=== PATIENT | female | born 1975 | race Caucasian/White ===

== ENCOUNTER 2020-06-16 05:58 | Day surgery (SDC) | payer OTHER ==
[2020-06-16] VITALS (12 sets, daily range): BP systolic 121–149; BP diastolic 73–98
[~2020-06-16] VITALS: Ht 154.9 cm; Wt 58.0 kg
[~2020-06-16 05:58] MED LIST: HYDR-3583 PO; MULT-608 PO; OMEP20TA2 PO; OXYC-12 PO; PRM25T PO; TRAM50TA2 PO
[2020-06-16 07:11] LABS: BASOPHILS # (AUTO) 0.1 10^3/uL (0.0-0.1); BASOPHILS % (AUTO) 0 % (0-10); CHLORIDE 106 MMOL/L (98-107); EOSINOPHILS # (AUTO) 0.1 10^3/uL (0.0-0.3); EOSINOPHILS % (AUTO) 0 % (0-10); HEMATOCRIT 38 % (35-52); HEMOGLOBIN 12.1 g/dL (11.5-16.0); LYMPHOCYTES # (AUTO) 1.7 10^3/uL (1.0-4.0); LYMPHOCYTES % (AUTO) 12 % (12-44); MEAN CORPUSCULAR HEMOGLOBIN 26 pg (25-34); MEAN CORPUSCULAR HGB CONC 32 g/dL (32-36); MEAN CORPUSCULAR VOLUME 83 fL (80-99); MEAN PLATELET VOLUME 9.9 fL (9.0-12.2); MONOCYTES % (AUTO) 6 % (0-12); NEUTROPHILS # (AUTO) 12.2 10^3/uL (1.8-7.8); NEUTROPHILS % (AUTO) 81 % (42-75); PLATELET COUNT 331 10^3/uL (130-400); POTASSIUM 3.8 MMOL/L (3.6-5.0); SODIUM 139 MMOL/L (135-145); WHITE BLOOD COUNT 15.1 10^3/uL (4.3-11.0)
[2020-06-16 07:13] LABS: CALCIUM 8.7 MG/DL (8.5-10.1); GLUCOSE 98 MG/DL (70-105)
[2020-06-16 07:15] LABS: CARBON DIOXIDE 24 MMOL/L (21-32)
[2020-06-16] MEDS ORDERED: fentaNYL INJECTION 100 MCG/2 ML AMP IVP ONE ×3 (07:15→11:30)
[2020-06-16] MEDS ORDERED: ONDANSETRON 4 MG/2 ML (SDV) Z0FRAN IVP ONE ×2 (07:15→10:15)
[2020-06-16] MEDS ORDERED: NS IV 1000 ML 1,000 ML IV SCH (07:15)
[2020-06-16 07:17] LABS: CREATININE SERUM 0.83 MG/DL (0.60-1.30); GFR ESTIMATED > 60
[2020-06-16 07:18] LABS: BUN/CREATININE RATIO 14
--- NOTE | 2020-06-16 07:18 | ED Abdominal Pain ---
General Stated Complaint: RT SIDE & LOW BACK & ABD PAIN Source of Information: Patient Exam Limitations: No Limitations History of Present Illness Date Seen by Provider: Jun 16, 2020 Time Seen by Provider: 07:05 Initial Comments Carla is a 45-year-old female who presents to the emergency department today with a chief complaint of abdominal pain. Patient states that she started having mid abdominal pain yesterday while she was at work, she states the pain has slowly migrated into her right lower quadrant. Patient states the pain radiates into her back and up into her right shoulder. Patient states she has never had pain like this before. She has had a previous cholecystectomy. Patient states that she has been nauseated and has had decreased appetite. No fevers are reported. Patient denies any diarrhea. Patient states everything makes her pain worse. She states when she brings her knees to her chest she feels a little bit better. Patient has not taken anything for the pain. She denies any dysuria, urgency or frequency. No abnormal vaginal discharge. Patient's last menstrual cycle was about 2 weeks ago. She states it was longer than normal and she spotted for many days after her period ended. All other review of systems reviewed and negative except as stated above. Timing/Duration: 12-24 Hours Severity/Quality: Moderate, Aching, Sharp, Stabbing Location: RLQ Radiation: Back, Scapula Activities at Onset: Other (Patient was at work at the onset of symptoms) Modifying Factors: Improves With Lying down, Improves With Resting Associated Symptoms: Nausea/Vomiting Allergies and Home Medications Allergies Coded Allergies: No Known Drug Allergies (Verified , 06/16/20) Home Medications Hydrocodone Bit/Acetaminophen 1 Tab Tab, 1-2 EA PO Q4HR PRN, (Reported) Multivitamins 1 Tab Tablet, 1 TAB PO DAILY, (Reported) Omeprazole 20 Mg Tablet.dr, 20 MG PO DAILY PRN, (Reported) Patient Home Medication List Home Medication List Reviewed: Yes Review of Systems Review of Systems Constitutional: see HPI EENTM: No Symptoms Reported Respiratory: No Symptoms Reported Cardiovascular: No Symptoms Reported Gastrointestinal: Abdomen Distended, Abdominal Pain, Nausea, Poor Appetite Genitourinary: No Symptoms Reported Musculoskeletal: no symptoms reported Skin: no symptoms reported All Other Systems Reviewed Negative Unless Noted: Yes Past Qzignjb-Iupami-Coepmd Hx Past Medical History Reproductive Disorders: No Physical Exam Vital Signs Vital Signs - First Documented 06/16/20 06:24 Temp 36.9 Pulse 107 Resp 18 B/P (MAP) 151/106 (121) Pulse Ox 99 Capillary Refill : Height/Weight/BMI Height: '" Weight: lbs. oz. kg; BMI Method:Stated General Appearance: WD/WN, mild distress HEENT: PERRL/EOMI Respiratory: lungs clear, normal breath sounds, no respiratory distress, no accessory muscle use Cardiovascular: regular rate, rhythm, no murmur Gastrointestinal: soft, abnormal bowel sounds (Hypoactive bowel sounds), guarding, tenderness (Right lower quadrant) Extremities: non-tender, normal inspection, no pedal edema Neurologic/Psychiatric: alert, normal mood/affect, oriented x 3 Skin: normal color, warm/dry Progress/Results/Core Measures Results/Orders Lab Results Laboratory Tests Test 06/16/20 06:27 06/16/20 06:36 Range/Units Urine Color YELLOW Urine Clarity CLEAR Urine pH 5.5 5-9 Urine Specific [place] 1.025 H 1.016-1.022 Urine Protein NEGATIVE NEGATIVE Urine Glucose (UA) NEGATIVE NEGATIVE Urine Ketones NEGATIVE NEGATIVE Urine Nitrite NEGATIVE NEGATIVE Urine Bilirubin NEGATIVE NEGATIVE Urine Urobilinogen 0.2 < = 1.0 MG/DL Urine Leukocyte Esterase NEGATIVE NEGATIVE Urine RBC (Auto) 1+ H NEGATIVE Urine RBC 2-5 H /HPF Urine WBC NONE /HPF Urine Squamous Epithelial Cells 10-25 H /HPF Urine Crystals NONE /LPF Urine Bacteria FEW H /HPF Urine Casts NONE /LPF Urine Mucus NEGATIVE /LPF Urine Culture Indicated NO Urine Test NEGATIVE NEGATIVE White Blood Count 15.1 H 4.3-11.0 10^3/uL Red Blood Count 4.61 3.80-5.11 10^6/uL Hemoglobin 12.1 11.5-16.0 g/dL Hematocrit 38 35-52 % Mean Corpuscular Volume 83 80-99 fL Mean Corpuscular Hemoglobin 26 25-34 pg Mean Corpuscular Hemoglobin Concent 32 32-36 g/dL Red Cell Distribution Width 14.3 10.0-14.5 % Platelet Count 331 130-400 10^3/uL Mean Platelet Volume 9.9 9.0-12.2 fL Immature Granulocyte % (Auto) 0 % Neutrophils (%) (Auto) 81 H 42-75 % Lymphocytes (%) (Auto) 12 12-44 % Monocytes (%) (Auto) 6 0-12 % Eosinophils (%) (Auto) 0 0-10 % Basophils (%) (Auto) 0 0-10 % Neutrophils # (Auto) 12.2 H 1.8-7.8 10^3/uL Lymphocytes # (Auto) 1.7 1.0-4.0 10^3/uL Monocytes # (Auto) 1.0 0.0-1.0 10^3/uL Eosinophils # (Auto) 0.1 0.0-0.3 10^3/uL Basophils # (Auto) 0.1 0.0-0.1 10^3/uL Immature Granulocyte # (Auto) 0.1 0.0-0.1 10^3/uL Neutrophils % (Manual) 82 % Lymphocytes % (Manual) 11 % Monocytes % (Manual) 6 % Eosinophils % (Manual) 1 % Band Neutrophils % Blood Morphology Comment NORMAL Sodium Level 139 135-145 MMOL/L Potassium Level 3.8 3.6-5.0 MMOL/L Chloride Level 106 98-107 MMOL/L Carbon Dioxide Level 24 21-32 MMOL/L Anion Gap 9 5-14 MMOL/L Blood Urea Nitrogen 12 7-18 MG/DL Creatinine 0.83 0.60-1.30 MG/DL Estimat Glomerular Filtration Rate > 60 BUN/Creatinine Ratio 14 Glucose Level 98 70-105 MG/DL Calcium Level 8.7 8.5-10.1 MG/DL My Orders Orders - DEVON FORMAN MD Ed Iv/Invasive Line Start (06/16/20 07:03) Cbc With Automated Diff (06/16/20 07:03) Basic Metabolic Panel (06/16/20 07:03) Ua Culture If Indicated (06/16/20 07:03) Hcg,Qualitative Urine (06/16/20 07:03) Ct Abdomen/Pelvis W (06/16/20 07:03) Ns Iv 1000 Ml (Sodium Chloride 0.9%) (06/16/20 07:15) Fentanyl Injection (Sublimaze Injection (06/16/20 07:15) Ondansetron Injection (Zofran Injectio (06/16/20 07:15) Manual Differential (06/16/20 06:36) Fentanyl Injection (Sublimaze Injection (06/16/20 08:15) Ciprofloxacin Iv 400mg/200ml (Cipro Iv S (06/16/20 09:15) Metronidazole 500mg/100ml Ivpb (Flagyl 5 (06/16/20 09:15) Medications Given in ED Current Medications Medications Dose Ordered Sig/Suhail Route Start Time Stop Time Status Last Admin Dose Admin Fentanyl Citrate 25 mcg ONCE ONCE IVP 06/16/20 07:15 06/16/20 07:16 DC 06/16/20 07:15 25 MCG Fentanyl Citrate 50 mcg ONCE ONCE IVP 06/16/20 08:15 06/16/20 08:16 DC 06/16/20 08:23 50 MCG Iohexol 100 ml ONCE ONCE IV 06/16/20 07:30 06/16/20 07:31 DC 06/16/20 07:42 72 ML Ondansetron HCl 4 mg ONCE ONCE IVP 06/16/20 07:15 06/16/20 07:16 DC 06/16/20 07:15 4 MG Sodium Chloride 100 ml ONCE ONCE IV 06/16/20 07:30 06/16/20 07:31 DC 06/16/20 07:42 80 ML Vital Signs/I&O 06/16/20 06:24 Temp 36.9 Pulse 107 Resp 18 B/P (MAP) 151/106 (121) Pulse Ox 99 Progress Progress Note : Time: 09:05 Progress Note Discussed with Dr. Rivas on-call for general surgery. We will send her over to same-day surge for appendectomy secondary to acute appendicitis on CT. Patient had 2 sips of coffee this morning around 4 AM with a little bit of creamer in it. Patient is otherwise n.p.o. Dr. Rivas would like her to have some Cipro and Flagyl prior to surgery. We will get that accomplished before sending her over. Patient states her pain is well controlled at this time. Diagnostic Imaging Diagonstic Imaging: CT Plain Films/CT/US/NM/MRI: abdomen Comments [facility]. [place], [place] NAME: CARLA ANGUIANO [facility] REC#: [id number] PT STATUS: REG ER : 1975 PHYSICIAN: DEVON FORMAN MD ADMIT DATE: 06/16/20/ER Draft Date of Exam:06/16/20 CT ABDOMEN/PELVIS W PROCEDURE: CT abdomen and pelvis with contrast. TECHNIQUE: Multiple contiguous axial images were obtained through the abdomen and pelvis after administration of intravenous contrast. Auto Exposure Controls were utilized during the CT exam to meet ALARA standards for radiation dose reduction. All CT scans use one or more of the following dose optimizing techniques: automated exposure control, MA and/or KvP adjustment based on patient size and exam type or iterative reconstruction. INDICATION: Right lower quadrant pain. Comparison is made with prior CT from 07/02/2010. The lung bases are clear. No discrete liver mass is detected. Gallbladder is surgically absent. No biliary ductal dilatation is seen. Pancreas and spleen are unremarkable. No adrenal mass is detected. Kidneys are unremarkable. Aorta is non-aneurysmal. The appendix is identified in the right lower quadrant. The appendix is dilated and fluid-filled with wall thickening. There is periappendiceal inflammation. Features are consistent with acute appendicitis. No definite abscess formation is seen. There is moderate stool throughout the ascending and transverse colon as well as the descending colon consistent with constipation. No definite bowel obstruction is seen although there are some mildly dilated and fluid filled small bowel loops in the left abdomen. There is no free air. Uterus and bladder are unremarkable. The bony structures are nonacute. IMPRESSION: Findings consistent with acute appendicitis. No abscess formation or bowel obstruction is identified. Dictated on workstation # [id number] Dict: 06/16/2008 Trans: 06/16/20 0815 [facility] [id number] Interpreted by: LARISA CALIXTO MD Electronically signed by: Departure Communication (Admissions) Time/Spoke to Admitting Phy: 09:[address] Rivas - Same Day Surg; cipro and flagyl to be given Impression Primary Impression: Abdominal pain Qualified Codes: R10.31 - Right lower quadrant pain Additional Impression: Acute appendicitis Qualified Codes: K35.30 - Acute appendicitis with localized peritonitis, without perforation or gangrene Disposition: ADMITTED INPATIENT Condition: Stable Admissions Decision to Admit Reason: Admit from ER (General) Decision to Admit/Date: Jun 16, 2020 Time/Decision to Admit Time: 09:08 Departure-Patient Inst. Referrals: OSCAR STANTON DO (PCP/Family) Primary Care Physician DEVON FORMAN MD Jun 16, 2020 07:18
[2020-06-16 07:24] LABS: BILIRUBIN,URINE NEGATIVE (NEGATIVE); CLARITY,URINE CLEAR; COLOR,URINE YELLOW; GLUCOSE, URINE (UA) NEGATIVE (NEGATIVE); KETONES,URINE NEGATIVE (NEGATIVE); LEUKOCYTE ESTERASE ,URINE NEGATIVE (NEGATIVE); NITRITE,URINE NEGATIVE (NEGATIVE); PH,URINE 5.5 (5-9); PROTEIN,URINE NEGATIVE (NEGATIVE)
[2020-06-16] MEDS ORDERED: HOLD METFORMIN - RECEIVED CONTRAST 20 ML VIAL IV SCH (07:30)
[2020-06-16] MEDS ORDERED: NS 100 ML (IVPB) BAG IV ONE (07:30)
[2020-06-16] MEDS ORDERED: IOHEXOL 350 MG/ML 100 ML (OMNIPAQUE 350) VIAL IV ONE (07:30)
[2020-06-16 07:32] LABS: BACTERIA,URINE FEW /HPF
--- NOTE | 2020-06-16 08:16 | Diagnostic Imaging Report ---
PROCEDURE: CT abdomen and pelvis with contrast. TECHNIQUE: Multiple contiguous axial images were obtained through the abdomen and pelvis after administration of intravenous contrast. Auto Exposure Controls were utilized during the CT exam to meet ALARA standards for radiation dose reduction. All CT scans use one or more of the following dose optimizing techniques: automated exposure control, MA and/or KvP adjustment based on patient size and exam type or iterative reconstruction. INDICATION: Right lower quadrant pain. Comparison is made with prior CT from 07/02/2010. The lung bases are clear. No discrete liver mass is detected. Gallbladder is surgically absent. No biliary ductal dilatation is seen. Pancreas and spleen are unremarkable. No adrenal mass is detected. Kidneys are unremarkable. Aorta is non-aneurysmal. The appendix is identified in the right lower quadrant. The appendix is dilated and fluid-filled with wall thickening. There is periappendiceal inflammation. Features are consistent with acute appendicitis. No definite abscess formation is seen. There is moderate stool throughout the ascending and transverse colon as well as the descending colon consistent with constipation. No definite bowel obstruction is seen although there are some mildly dilated and fluid filled small bowel loops in the left abdomen. There is no free air. Uterus and bladder are unremarkable. The bony structures are nonacute. IMPRESSION: Findings consistent with acute appendicitis. No abscess formation or bowel obstruction is identified. Dictated by: Dictated on workstation # [id number]
[2020-06-16 08:20] LABS: EOSINOPHILS % (MANUAL) 1 %; LYMPHOCYTES % (MANUAL) 11 %; MONOCYTES % (MANUAL) 6 %; NEUTROPHILS % (MANUAL) 82 %; RBC MORPH NORMAL
[2020-06-16] MEDS ORDERED: metroNIDAZOLE 500MG/100ML IVPB 100 ML IV ONE (09:15)
[2020-06-16] MEDS ORDERED: CIPROFLOXACIN IV 400MG/200ML 200 ML IV ONE (09:15)
--- NOTE | 2020-06-16 09:44 | Progress Note-Pre Operative ---
Pre-Operative Progress Note H&P Reviewed The H&P was reviewed, patient examined and no changes noted. Date Seen by Provider: Jun 16, 2020 Time Seen by Provider: 09:40 Date H&P Reviewed: Jun 16, 2020 Time H&P Reviewed: 09:40 Pre-Operative Diagnosis: acute appendicitis SERGE GALLEGOS MD Jun 16, 2020 09:44
[2020-06-16] MEDS ORDERED: morphine INJ 10 MG/ML 1ML (SYR OR VIAL) IVP PRN ×2 (09:45)
[2020-06-16] MEDS ORDERED: ONDANSETRON 4 MG/2 ML (SDV) Z0FRAN IVP PRN ×2 (09:45→11:30)
[2020-06-16] MEDS ORDERED: oxyCODONE/APAP 5/325MG (PERCOCET 5) TABLET PO PRN (09:45)
[2020-06-16] MEDS ORDERED: HYDR-3817 PO (09:48)
[2020-06-16] MEDS ORDERED: LIDOCAINE/EPI 1%-1:100,000 (XYLOCAINE) 20ML ONE ×2 (09:49→10:08)
--- NOTE | 2020-06-16 09:49 | Discharge Inst-Surgical ---
D/C Lap Instructions-ROSY New, Converted, or Re-Newed RX: RX on Chart Follow Up Appt in 2 weeks Activity as tolerated No driving for 24 hours No driving while on pain medications Incentive Spirometry use every 2 hours while awake Regular Diet Symptoms to Report: Fever over 101 degree F, Nausea/Vomiting Infection Signs and Symptoms to report: Increased redness, Foul odor of wound, Increased drainage Bathing instructions: May shower Operative Area Clean/Dry; Keep incision clean/dry If any problems/questions: Contact your physician or go to Emergency Room SERGE GALLEGOS MD Jun 16, 2020 09:48
[2020-06-16] MEDS: LACTATED RINGERS 1,000 ML IV PRN ×2 (09:57→11:00)
[2020-06-16] MEDS ORDERED: SEVOFLURANE (ULTANE) 15 ML INHAL SOLN ONE ×3 (10:03→11:29)
[2020-06-16] MEDS ORDERED: ONDANSETRON 4 MG/2 ML (SDV) Z0FRAN ONE (10:03)
[2020-06-16] MEDS ORDERED: SUCCINYLCHOLINE INJ 100 MG/5 ML SYR/VIAL ONE (10:03)
[2020-06-16] MEDS ORDERED: ROCURONIUM 10 MG/ML 5 ML SYRINGE IV ONE (10:03)
[2020-06-16] MEDS ORDERED: proPOfol 200 MG/20 ML (DIPRIVAN) VIAL IV ONE (10:03)
[2020-06-16] MEDS ORDERED: LIDOCAINE PF 2% 5 ML (XYLOCAINE) VIAL ONE (10:03)
[2020-06-16] MEDS ORDERED: fentaNYL INJECTION 100 MCG/2 ML AMP ONE ×2 (10:04→10:57)
[2020-06-16] MEDS ORDERED: MIDAZOLAM 2 MG/2 ML (VERSED) VIAL ONE (10:04)
[2020-06-16] MEDS ORDERED: FAMOTIDINE 20MG/2ML IV (PEPCID) ONE (10:05)
[2020-06-16] MEDS ORDERED: SCOPOLAMINE 1.5 MG (TRANSDERM-SCOP) PATCH ONE (10:05)
[2020-06-16] MEDS ORDERED: SCOPOLAMINE 1.5 MG (TRANSDERM-SCOP) PATCH TD ONE (10:15)
[2020-06-16] MEDS ORDERED: FAMOTIDINE 20MG/2ML IV (PEPCID) IVP ONE (10:15)
[2020-06-16] MEDS ORDERED: PHENYLEPHRINE 100 MCG/ML 10 ML (ANESTHESIA) SYR ONE (11:08)
--- NOTE | 2020-06-16 11:16 | Progress Note-Post Operative ---
Post-Operative Progess Note Surgeon (s)/Hydrodynamicist (s) Surgeon SERGE GALLEGOS MD Hydrodynamicist: none Pre-Operative Diagnosis acute appendicitis Post-Operative Diagnosis same Procedure & Operative Findings Date of Procedure 06/16/20 Procedure Performed/Findings laparoscopic appendectomy Anesthesia Type get Estimated Blood Loss Estimated blood loss (mL): minimal Specimens/Packing Specimens Removed appendix SERGE GALLEGOS MD Jun 16, 2020 11:16
[2020-06-16] MEDS ORDERED: MEPERIDINE (DEMEROL) INJ 50 MG/ML IVP ONE (11:30)
[2020-06-16] MEDS ORDERED: morphine INJ 10 MG/ML 1ML (SYR OR VIAL) IVP ONE (11:30)
--- NOTE | 2020-06-16 12:00 | Anesthesia-General Post-Op ---
General Patient Condition Mental Status/LOC: Same as Preop Cardiovascular: Satisfactory Nausea/Vomiting: Absent Respiratory: Satisfactory Pain: Controlled Complications: Absent Post Op Complications Complications None Follow Up Care/Instructions Patient Instructions None needed. Anesthesia/Patient Condition Patient Condition Patient is doing well, no complaints, stable vital signs, no apparent adverse anesthesia problems. No complications reported per nursing. OSIRIS KRUGER CRNA Jun 16, 2020 12:00
[2020-06-16] MEDS ORDERED: PROMETHAZINE INJ 25 MG/ML (PHENERGAN) AMP ONE (12:39)
[2020-06-16] MEDS ORDERED: PROMETHAZINE INJ 25 MG/ML (PHENERGAN) AMP IVP ONE (12:45)
[2020-06-16] MEDS ORDERED: HYDROcodone/APAP 5 MG/325 MG (LORTAB) TAB ONE (13:50)
[2020-06-16] MEDS ORDERED: HYDROcodone/APAP 5 MG/325 MG (LORTAB) TAB PO ONE (14:00)
--- NOTE | 2020-06-16 19:49 | OPERATIVE REPORT ---
DATE OF SERVICE: 06/16/2020 ATTENDING PRIMARY CARE PHYSICIAN: Dr. Jessica Hernandez. PREOPERATIVE DIAGNOSIS: Acute appendicitis. POSTOPERATIVE DIAGNOSIS: Acute appendicitis. No perforation. PROCEDURE: Laparoscopic appendectomy. SURGEON: Serge Gallegos MD. ANESTHESIA: General endotracheal. ESTIMATED BLOOD LOSS: Minimal. FINDINGS: Inflamed appendix and mesoappendix, no perforation. DISPOSITION: The patient tolerated the procedure well. INDICATIONS: The patient is a 45-year-old female who presented to the Emergency Department this morning for a right lower abdominal quadrant pain. She states that this started the previous day in the afternoon and was more in the periumbilical region; however, over time became more localized to the right lower abdominal quadrant. As time persisted, pain worsened and she presented to the Emergency Department where a CT scan was performed, which did show inflammation of the appendix consistent with acute appendicitis. DESCRIPTION OF PROCEDURE: The patient was brought to the operating room, laid supine on the table. After adequate IV pain and sedative medications and general endotracheal intubation, the abdomen was prepped and draped in standard surgical fashion. A 0.5% Marcaine with epinephrine was used to anesthetize overlying skin on left upper abdominal quadrant and a transverse skin incision made using a 15 blade. An 0 silk suture was applied to the medial aspect incision for retraction and a Veress needle inserted with a low opening pressure of 0 mmHg and the abdomen was then insufflated to 15 mmHg pressure. The Veress needle removed and a 5 mm XL trocar placed followed by a 5 mm 45-degree angle laparoscope visualizing the peritoneal cavity. A 4-quadrant abdominal exploration was performed. There was an inflamed appendix and mesoappendix. This did not involve the cecal base. No perforation identified. No Meckel's diverticulum identified. Under direct visualization, we then proceeded to place an infraumbilical 10 mm port after the skin and peritoneal lining were anesthetized using 0.5% Marcaine with epinephrine and a transverse skin incision made using 15 blade. In a similar manner, a suprapubic 5 mm port was placed. The patient was then placed in Trendelenburg position as well as plane right side up, left side down. The appendix was then retracted towards the anterior abdominal wall. A window was then created between the base of the appendix and the mesoappendix using a [place] dissector. The appendix was then stapled and transected at the cecal base using a MARIUSZ 45 mm stapler with 2.5 mm thickness load. The mesoappendix was then stapled and transected with the same stapler with a 2.5 mm thickness reload. Good hemostasis was observed. The appendix was removed through the 10 mm port site using an EndoCatch bag. The 10 mm port site fascia and peritoneum were then closed under direct visualization using a Nigel-Eden device and 0 Vicryl suture. The abdomen was desufflated and remaining ports removed. All skin incisions were closed using 4-0 Monocryl running subcuticular sutures. Wounds were then cleaned and covered with Dermabond. The patient tolerated the procedure well. We will start IV normal pain medication as well as a clear liquid diet. When she is tolerating clears, has good pain control with oral pain medications, ambulating well, we will discharge her home. She will be instructed to do no heavy lifting or exertion for the next two weeks. Job ID: [id number] DocumentID: [id number] Dictated Date: 06/16/2020 11:23:00 Forest Supervisor Date: 06/16/2020 19:48:17 Dictated By: SERGE GALLEGOS MD MTDD
--- NOTE | 2020-06-16 19:51 | HISTORY AND PHYSICAL ---
DATE OF SERVICE: ATTENDING PRIMARY CARE PHYSICIAN: Fatmata Hernandez DO PREOPERATIVE DIAGNOSIS: Acute appendicitis. INDICATIONS: The patient is a 45-year-old female, who presented to the Emergency Department with abdominal pain. She stated having mid abdominal pain yesterday while she was at work, which did migrate towards the right lower abdominal quadrant. She also reported some nausea as well as anorexia; however, no vomiting. The pain worsened over time and she presented to the Emergency Department where a CT scan was performed, which did show inflammation of the appendix consistent with an acute appendicitis. PAST MEDICAL HISTORY: Gastroesophageal reflux disease. PAST SURGERIES: None. ALLERGIES: No known drug allergies. MEDICATIONS: Hydrocodone p.r.n., omeprazole 20 mg p.r.n. SOCIAL HISTORY: Negative smoke, negative alcohol. FAMILY HISTORY: Noncontributory. VITAL SIGNS: Temperature 36.9, blood pressure 151/106, pulse 107, respirations 18, pulse ox 99% on room air. REVIEW OF SYSTEMS: Well-nourished female, in no acute distress. She is not experiencing any shortness of breath or difficulty breathing. No chest pain, palpitations or diaphoresis. Intermittent episodes of nausea, no vomiting. No fever or chills. No recent inadvertent weight loss. All other review of systems negative. PHYSICAL EXAMINATION: CHEST: Clear. Good breath sounds bilaterally. HEART: Regular, no murmurs. EXTREMITIES: No lower extremity edema, negative Homans sign. HEENT: No scleral icterus, no cervical lymphadenopathy. ABDOMEN: Soft, nondistended. There is pain in the right lower abdominal quadrant at McBurney's point with voluntary guarding, no rebound. SKIN: Warm, dry. LABORATORY DATA: WBC 15.1, hemoglobin 12.1, hematocrit 38, platelets 331. ASSESSMENT AND PLAN: A 45-year-old female with acute appendicitis. The natural history of this disease process was explained to the patient including the risks and benefits of surgery and she would like to proceed with a diagnostic laparoscopy as well as a laparoscopic appendectomy, which we will proceed. Job ID: [id number] DocumentID: [id number] Dictated Date: 06/16/2020 09:53:29 Clinic Coordinator Date: 06/16/2020 18:55:39 Dictated By: SERGE GALLEGOS MD
== END 2020-06-16 14:25 | disposition home or self-care (01) ==
LOC: EDUNIT# 05:58 → ER 06:04 → SDC 09:07 → ER 14:25
PROVIDERS: ATTEND Surgery
DX: K35.30 Acute appendicitis with localized peritonitis, without perforation or gangrene (principal); K21.9 Gastro-esophageal reflux disease without esophagitis; Z79.899 Other long term (current) drug therapy; Z20.828 Contact with and (suspected) exposure to other viral communicable diseases
CPT/HCPCS: 44970; 74177; 80048; 81000; 84703; 85007; 85027; 87081; 88304; 99284; U0002; 36415; 87635

== ENCOUNTER → 2020-07-21 | Outpatient (CLI) | payer OTHER ==
[~2020-07-21] MED LIST changes: +HYDR-3817 PO
--- NOTE | 2020-07-21 11:01 | Diagnostic Imaging Report ---
Clinical indications: Patient with dysfunctional uterine bleeding/pelvic pain. Exam: Transabdominal and transvaginal ultrasound of the pelvis. Comparison: Ultrasound of the pelvis dated 05/22/2011. CT scan of the abdomen and pelvis without contrast dated 06/16/2020.. Findings: The uterus parenchyma appears heterogeneous with this appearance progressing in the interim. There is a roughly 12 mm, likely nabothian cyst seen. Patient previously had a nabothian cyst measuring 11 mm on the prior study. There is a 3.2 cm x 3.2 cm x 3.2 cm heterogeneous masslike area involving the right side of the lower uterine segment with Doppler flow. This was not seen on the comparison ultrasound. This area of the uterus is also not well visualized on the comparison CT scan. Fibroid may be considered. The uterus measures 8.2 cm x 5.4 cm x 5.8 cm. The endometrial stripe measures 8 mm. Bilateral ovarian cysts are noted. There is a 3.5 cm x 2.4 cm x 2.4 cm cyst involving the left ovary which appears partially exophytic. There is no significant Doppler flow associated with this cyst. Suspected air in the right adnexal region may represent the ovary. This area measures roughly 2.4 cm x 2.2 cm x 3.4 cm. Patient body habitus limits evaluation of right adnexa region. There is normal Doppler flow and spectral waveform involving the left adnexal region. There is no significant free fluid within the pelvis. Impression: 1: Limited exam due to patient body habitus. The left ovary is not definitively visualized. 2: There is a 3.2 cm heterogeneous masslike area involving the right uterus region which is not seen on prior ultrasound. Prior CT scan is not visualized uterus well enough to see this area. A fibroid may be considered. Given the heterogeneous appearance of the uterus and uterine bleeding and pain, pelvic MRI with and without contrast is suggested for further evaluation. 3: The uterus is diffusely heterogeneous which has progressed in the interim. 4.: Nabothian cyst. 5: Left ovarian cyst. Otherwise left ovary is unremarkable. Dictated by: Dictated on workstation # [id number]
--- NOTE | 2020-07-21 11:13 | Diagnostic Imaging Report ---
Digital mammogram. Indication: Bilateral screening This study was compared to the prior exams of 01/30/2016 and 07/05/2015 and 11/29/2014. At this time there are no current complaints. The current study was also evaluated with a Computer Aided Detection (CAD) system. FINDINGS: The fibroglandular tissue in both breasts is dense. This does limit the sensitivity of this exam. Overall, there does not appear to have been any significant change when compared to the prior study. No primary or secondary sign of malignancy is noted. IMPRESSION: 1. There is no radiographic evidence for malignancy. 2. The patient should have her annual bilateral screening mammogram on schedule in July 2021. ACR BI-RADS Category 1: Negative. Result letter will be mailed to the patient. Note: At least 10% of breast cancer is not imaged by mammography. Dictated by: Dictated on workstation # [id number]
== END ==
LOC: RAD 09:13
PROVIDERS: ATTEND Surgery
DX: Z12.31 Encounter for screening mammogram for malignant neoplasm of breast (principal); N93.8 Other specified abnormal uterine and vaginal bleeding; N88.8 Other specified noninflammatory disorders of cervix uteri; N83.202 Unspecified ovarian cyst, left side
CPT/HCPCS: 76830; 76856; 77063; 77067

== ENCOUNTER → 2022-02-05 | Outpatient (CLI) | payer BC, OTHER ==
--- NOTE | 2022-02-05 18:19 | Diagnostic Imaging Report ---
Indication: Routine screening. Comparison is made with prior mammogram from 07/21/2020 and 01/30/2016. 2-D and 3-D bilateral screening mammography was performed with CAD. Both breasts are heterogeneously dense, limiting the sensitivity of mammography. No mass or malignant-appearing microcalcifications are seen. Axillae are unremarkable. IMPRESSION: BI-RADS Category 1 No mammographic features suspicious for malignancy are identified. ACR BI-RADS Category 1: Negative. Result letter will be mailed to the patient. Note: At least 10% of breast cancer is not imaged by mammography. Dictated by: Dictated on workstation # [id number]
== END ==
LOC: RAD 08:20
PROVIDERS: ATTEND Obstetrics & Gynecology
DX: Z12.31 Encounter for screening mammogram for malignant neoplasm of breast (principal)
CPT/HCPCS: 77063; 77067

== ENCOUNTER 2022-12-17 09:17 | Emergency (ER) | payer BC ==
[~2022-12-17] VITALS: Ht 157 cm; Wt 62.0 kg
[2022-12-17] MEDS ORDERED: LACTATED RINGERS 1,000 ML IV STA (09:35)
--- NOTE | 2022-12-17 09:37 | ED Cardiac General ---
History of Present Illness General Chief Complaint: Cardiac/General Problems Stated Complaint: HEART PALPITATIONS | HIGH BLOOD PRESSURE Nursing Triage Note: ARRIVED VIA AMB TO ROOM 03 WITH COMPLAINTS OF PALPITATIONS AND SOA STARTING AT 0600 TODAY. DENIES CP. FEELS ANXIOUS. Source: patient Exam Limitations: no limitations History of Present Illness Date Seen by Provider: Dec 17, 2022 Time Seen by Provider: 09:18 Initial Comments 47-year-old female with no pertinent past medical history coming in due to palpitations and feeling mildly short of breath starting around 6 AM this morning. She also notes a "whooshing" in her ear for the past week or so. This is in her right ear. She is never really had symptoms like this before. She endorses a prior history of superficial clot in her left leg years ago which did not require blood thinners after a trauma. Denies any history of DVT, no recent surgery, no cardiac history at all, no hemoptysis, no leg swelling or pain, no recent long travel, fever, abdominal pain, nausea, vomiting, or any other concerns. She is relatively healthy and does not take any medicines daily. Allergies and Home Medications Allergies Coded Allergies: No Known Drug Allergies (Verified , 06/16/20) Patient Home Medication List Home Medication List Reviewed: Yes Hydrocodone/Acetaminophen (Hydrocodone-Acetamin 7.5-325) 1 Each Tablet, 1 EACH PO Q4H Prescribed by: SERGE GALLEGOS on 06/16/20 0948 Multivitamins (Multiple Vitamin) 1 Tab Tablet, 1 TAB PO DAILY, (Reported) Entered as Reported by: SURENDRA RASCON on 05/01/11 1358 Review of Systems Review of Systems Constitutional: No fever EENTM: No Symptoms Reported Respiratory: See HPI Cardiovascular: See HPI Gastrointestinal: No Symptoms Reported Genitourinary: No Symptoms Reported Musculoskeletal: no symptoms reported Skin: no symptoms reported Psychiatric/Neurological: No Symptoms Reported Endocrine: No Symptoms Reported Hematologic/Lymphatic: No Symptoms Reported Past Mgcdcbo-Rarztr-Zneygz Hx Patient Social History Tobacco Use?: No Substance use?: No Alcohol Use?: Yes Alcohol Frequency: Once in a while Immunizations Up To Date PED Vaccines UTD: Yes Seasonal Allergies Seasonal Allergies: No Past Medical History Surgeries: Yes Gallbladder Respiratory: No Cardiac: No Neurological: No Reproductive Disorders: No Sexually Transmitted Disease: No Genitourinary: No Gastrointestinal: No Musculoskeletal: No Endocrine: No HEENT: No Cancer: No Psychosocial: No Integumentary: No Blood Disorders: No Physical Exam Vital Signs Vital Signs - First Documented 12/17/22 09:18 Temp 37.6 Pulse 124 Resp 16 B/P (MAP) 200/111 (140) Pulse Ox 100 O2 Delivery Room Air Capillary Refill : Less Than 3 Seconds Height, Weight, BMI Height: '" Weight: lbs. oz. kg; 25.00 BMI Method:Stated General Appearance: WD/WN, Anxious HEENT: PERRL/EOMI, Normal ENT Inspection Neck: Full Range of Motion, Normal Inspection, Non Tender, Supple Respiratory: Chest Non Tender, Lungs Clear, Normal Breath Sounds, No Accessory Muscle Use, No Respiratory Distress Cardiovascular: No Edema, Normal Peripheral Pulses, Tachycardia Gastrointestinal: Normal Bowel Sounds, Non Tender, Soft; No Distended, No Guarding Extremity: Normal Capillary Refill, Normal Inspection, Normal Range of Motion, Non Tender, No Calf Tenderness, No Pedal Edema Neurologic/Psychiatric: Alert, No Motor/Sensory Deficits, Normal Mood/Affect Skin: Normal Color, Warm/Dry Progress/Results/Core Measures Results/Orders Lab Results Laboratory Tests Test 12/17/22 09:20 Range/Units White Blood Count 7.7 4.3-11.0 10^3/uL Red Blood Count 4.90 3.80-5.11 10^6/uL Hemoglobin 14.0 11.5-16.0 g/dL Hematocrit 42 35-52 % Mean Corpuscular Volume 86 80-99 fL Mean Corpuscular Hemoglobin 29 25-34 pg Mean Corpuscular Hemoglobin Concent 33 32-36 g/dL Red Cell Distribution Width 13.3 10.0-14.5 % Platelet Count 382 130-400 10^3/uL Mean Platelet Volume 9.5 9.0-12.2 fL Immature Granulocyte % (Auto) 0 % Neutrophils (%) (Auto) 53 42-75 % Lymphocytes (%) (Auto) 36 12-44 % Monocytes (%) (Auto) 10 0-12 % Eosinophils (%) (Auto) 1 0-10 % Basophils (%) (Auto) 1 0-10 % Neutrophils # (Auto) 4.1 1.8-7.8 10^3/uL Lymphocytes # (Auto) 2.7 1.0-4.0 10^3/uL Monocytes # (Auto) 0.8 0.0-1.0 10^3/uL Eosinophils # (Auto) 0.1 0.0-0.3 10^3/uL Basophils # (Auto) 0.1 0.0-0.1 10^3/uL Immature Granulocyte # (Auto) 0.0 0.0-0.1 10^3/uL Prothrombin Time 12.3 12.2-14.7 SEC INR Comment 0.9 0.8-1.4 Activated Partial Thromboplast Time 32 24-35 SEC D-Dimer 0.28 0.00-0.49 UG/ML Sodium Level 138 135-145 MMOL/L Potassium Level 3.4 L 3.6-5.0 MMOL/L Chloride Level 104 98-107 MMOL/L Carbon Dioxide Level 25 21-32 MMOL/L Anion Gap 9 5-14 MMOL/L Blood Urea Nitrogen 12 7-18 MG/DL Creatinine 0.87 0.60-1.30 MG/DL Estimat Glomerular Filtration Rate 82 BUN/Creatinine Ratio 14 Glucose Level 97 70-105 MG/DL Calcium Level 10.0 8.5-10.1 MG/DL Corrected Calcium 8.5-10.1 MG/DL Magnesium Level 2.0 1.6-2.4 MG/DL Total Bilirubin 0.4 0.1-1.0 MG/DL Aspartate Amino Transf (AST/SGOT) 31 5-34 U/L Alanine Aminotransferase (ALT/SGPT) 33 0-55 U/L Alkaline Phosphatase 110 40-136 U/L Troponin I < 0.028 <0.028 NG/ML B-Type Natriuretic Peptide < 10.0 <100.0 PG/ML Total Protein 7.7 6.4-8.2 GM/DL Albumin 4.7 H 3.2-4.5 GM/DL Lipase 42 8-78 U/L Thyroid Stimulating Hormone (TSH) 0.76 0.35-4.94 UIU/ML My Orders Orders - REGULO DURON MD Ekg Tracing (12/17/22 09:24) Cbc With Automated Diff (12/17/22 09:34) Magnesium (12/17/22 09:34) Chest 1 View, Ap/Pa Only (12/17/22 09:34) Comprehensive Metabolic Panel (12/17/22 09:34) Protime With Inr (12/17/22 09:34) Partial Thromboplastin Time (12/17/22 09:34) O2 (12/17/22 09:34) Monitor-Rhythm Ecg Trace Only (12/17/22 09:34) Ed Iv/Invasive Line Start (12/17/22 09:34) Lipase (12/17/22 09:34) Bnp Donald (12/17/22 09:34) Fibrin Degradation Products (12/17/22 09:34) Troponin I Donald (12/17/22 09:34) Aspirin Chewable Tablet (Baby Aspirin Ch (12/17/22 09:45) Lorazepam Tablet (Ativan Tablet) (12/17/22 09:45) Thyroid Stimulating Hormone (12/17/22 09:34) Lactated Ringers (Lr 1000 Ml Iv Solution (12/17/22 09:35) Medications Given in ED Current Medications Medications Dose Ordered Sig/Suhail Route Start Time Stop Time Status Last Admin Dose Admin Aspirin 324 mg ONCE ONCE PO 12/17/22 09:45 12/17/22 09:46 DC 12/17/22 09:48 324 MG Lorazepam 0.5 mg ONCE ONCE PO 12/17/22 09:45 12/17/22 09:46 DC 12/17/22 09:48 0.5 MG Vital Signs/I&O 12/17/22 09:18 Temp 37.6 Pulse 124 Resp 16 B/P (MAP) 200/111 (140) Pulse Ox 100 O2 Delivery Room Air Blood Pressure Mean: 140 Progress Progress Note : Progress Note Very pleasant 47-year-old female with above history coming in due to palpitations. ABCs were intact and vitals were stable on presentation although she is mildly tachycardic around 100. EKG ordered and interpreted by me showing no acute ischemic changes. An IV was placed and basic labs were obtained and were significant for normal white blood cell count, negative troponin, normal creatinine, normal BNP, negative D-dimer. ACS and PE very unlikely in the setting of her normal work-up. Chest x-ray also ordered and interpreted by me show no obvious pneumothorax, no opacities, normal cardiac silhouette. Patient is well-appearing and overall her exam is reassuring. I believe she stable for discharge with outpatient follow-up with cardiology. She was sent home with strict return precautions Initial ECG Impression Date: Dec 17, 2022 Initial ECG Impression Time: 09:28 Initial ECG Rate: 106 Initial ECG Rhythm: S.Tach Comment Narrow QRS, normal axis, no significant ST changes or T wave abnormalities Diagnostic Imaging Diagonstic Imaging: Xray (chest) Comments NAME: VILMA ANGUIANO [facility] REC#: [id number] PT STATUS: REG ER : 1975 PHYSICIAN: REGULO DURON MD ADMIT DATE: 12/17/22/ER Draft Date of Exam:12/17/22 CHEST 1 VIEW, AP/PA ONLY INDICATION: Chest pain COMPARISON: None available TECHNIQUE: Single radiograph of the chest dated 12/17/2022. FINDINGS: The cardiac silhouette is within normal limits in size. No significant pulmonary vascular congestion. The lungs are clear of focal pulmonary opacity. No pleural effusion. No pneumothorax. No acute osseous abnormality IMPRESSION: No acute cardiopulmonary abnormality. Dictated on workstation # [id number] Dict: 12/17/22 1029 Trans: 12/17/22 1034 CV [id number] Interpreted by: DARYN APARICIO MD Electronically signed by: Departure Impression Primary Impression: Palpitations Disposition: 01 HOME, SELF-CARE Condition: Stable Departure-Patient Inst. Decision time for Depature: 10:55 Referrals: OSCAR STANTON DO (PCP/Family) Primary Care Physician Patient Instructions: Palpitations Add. Discharge Instructions: We are unclear why you are having the palpitations. We would recommend following up with your regular doctor and potentially cardiology. They may want to do a Holter monitor. Fortunately, we are not seeing any life-threatening causes of your palpitations as of right now. Work/School Note: Work Release Form Date Seen in the Emergency Department: Dec 17, 2022 Return to Work: Dec 18, 2022 Restrictions: No Restrictions REGULO DURON MD Dec 17, 2022 09:37
[2022-12-17 09:41] LABS: BASOPHILS # (AUTO) 0.1 10^3/uL (0.0-0.1); BASOPHILS % (AUTO) 1 % (0-10); EOSINOPHILS # (AUTO) 0.1 10^3/uL (0.0-0.3); EOSINOPHILS % (AUTO) 1 % (0-10); HEMATOCRIT 42 % (35-52); LYMPHOCYTES # (AUTO) 2.7 10^3/uL (1.0-4.0); LYMPHOCYTES % (AUTO) 36 % (12-44); MEAN CORPUSCULAR HEMOGLOBIN 29 pg (25-34); MEAN CORPUSCULAR HGB CONC 33 g/dL (32-36); MEAN CORPUSCULAR VOLUME 86 fL (80-99); MEAN PLATELET VOLUME 9.5 fL (9.0-12.2); MONOCYTES # (AUTO) 0.8 10^3/uL (0.0-1.0); MONOCYTES % (AUTO) 10 % (0-12); NEUTROPHILS # (AUTO) 4.1 10^3/uL (1.8-7.8); NEUTROPHILS % (AUTO) 53 % (42-75); PLATELET COUNT 382 10^3/uL (130-400); WHITE BLOOD COUNT 7.7 10^3/uL (4.3-11.0)
[2022-12-17] MEDS ORDERED: LORazepam 0.5 MG (ATIVAN) TABLET PO ONE (09:45)
[2022-12-17] MEDS ORDERED: ASPIRIN 81 MG CHEW (CHILDREN'S ASA) PO ONE (09:45)
[2022-12-17 09:48] LABS: INR 0.9 (0.8-1.4); PROTHROMBIN TIME PATIENT 12.3 SEC (12.2-14.7)
[2022-12-17 09:51] LABS: FIBRIN DEGRADATION PRODUCTS 0.28 UG/ML (0.00-0.49)
[2022-12-17 09:54] LABS: ALANINE AMINOTRANSFERASE 33 U/L (0-55); ALBUMIN 4.7 GM/DL (3.2-4.5); ALKALINE PHOSPHATASE 110 U/L (40-136); BILIRUBIN,TOTAL 0.4 MG/DL (0.1-1.0); BUN/CREATININE RATIO 14; CARBON DIOXIDE 25 MMOL/L (21-32); CHLORIDE 104 MMOL/L (98-107); CREATININE SERUM 0.87 MG/DL (0.60-1.30); GFR ESTIMATED 82; GLUCOSE 97 MG/DL (70-105); LIPASE 42 U/L (8-78); POTASSIUM 3.4 MMOL/L (3.6-5.0); SODIUM 138 MMOL/L (135-145); TOTAL PROTEIN 7.7 GM/DL (6.4-8.2)
--- NOTE | 2022-12-17 10:34 | Diagnostic Imaging Report ---
INDICATION: Chest pain COMPARISON: None available TECHNIQUE: Single radiograph of the chest dated 12/17/2022. FINDINGS: The cardiac silhouette is within normal limits in size. No significant pulmonary vascular congestion. The lungs are clear of focal pulmonary opacity. No pleural effusion. No pneumothorax. No acute osseous abnormality IMPRESSION: No acute cardiopulmonary abnormality. Dictated by: Dictated on workstation # [id number]
[2022-12-17 11:11] VITALS: BP 118/73
== END 2022-12-17 11:11 | disposition home or self-care (01) ==
LOC: EDUNIT# 09:17 → ER 09:18
DX: R00.2 Palpitations (principal); R00.0 Tachycardia, unspecified
CPT/HCPCS: 36415; 71045; 80053; 83690; 83735; 83880; 84443; 84484; 85025; 85379; 85610; 85730; 93005; 93041

== ENCOUNTER → 2023-01-01 | Outpatient (CLI) | payer BC | LOC: CARD 09:08 | PROVIDERS: ATTEND Family Medicine | DX: R00.2 Palpitations (principal) ==